=== PATIENT | female | born 1965 ===

== ENCOUNTER 2022-05-14 09:15 | Inpatient (IN) | payer OTHER ==
[~2022-05-14] VITALS: Ht 160 cm; Wt 64.9 kg
[2022-05-14] MEDS ORDERED: SYNTHROID50 MCG PO (10:01)
[2022-05-14] MEDS ORDERED: BUSPIRONE HCL5 MG PO (10:15)
[2022-05-14] MEDS ORDERED: AMBIEN10 MG PO (10:15)
[2022-05-15] MEDS ORDERED: FLUOXETINE HCL20 MG (08:36)
[2022-05-15] MEDS ORDERED: MELOXICAM15 MG (08:36)
[2022-05-15] MEDS ORDERED: FAMOTIDINE20 MG (08:36)
[2022-05-15] MEDS ORDERED: PANTOPRAZOLE SO40 MG (08:36)
[2022-05-15] MEDS ORDERED: OMEPRAZOLE20 MG (08:36)
== END 2022-05-17 11:54 | disposition home or self-care (01) | DRG 743 ==
LOC: O/R 05-15 05:00 → SURH 05-15 07:00 → OB/GYN 05-15 10:54 → SURG-SUITE 05-15 10:59
PROVIDERS: ADMIT Specialist; ATTEND Specialist
PROC: 0UT00ZZ Resection of Right Ovary, Open Approach (ICD-10-PCS; 2022-05-15)
PROC: 0UB00ZZ Excision of Right Ovary, Open Approach (ICD-10-PCS; 2022-05-15)
PROC: 3E1M38Z Irrigation of Peritoneal Cavity using Irrigating Substance, Percutaneous Approach (ICD-10-PCS; 2022-05-15)
PROC: 0UT50ZZ Resection of Right Fallopian Tube, Open Approach (ICD-10-PCS; principal; 2022-05-15 07:00)
DX: D27.0 Benign neoplasm of right ovary (principal); Z20.822 Contact with and (suspected) exposure to COVID-19